=== PATIENT | male | born 1955 | race Caucasian/White ===

== ENCOUNTER 2018-04-28 22:08 | Emergency (ER) | payer MEDICARE ==
[2018-04-28 22:32] VITALS: TEMP 97.4; O2SAT 98
--- NOTE | 2018-04-28 23:02 | RAD ---
3 VIEWS RIGHT ANKLE RADIOGRAPHIC SERIES. INDICATIONS: Pain post fall. COMPARISONS: Degenerative disease. FINDINGS: Suspect acute fracture from the superior aspect of the navicular bone adjacent to the talonavicular joint with adjacent soft tissue swelling. Suspect underlying ligamentous injury. Large calcaneal Achilles tendon and plantar tendon insertion spurs. Sequela of remote small medial malleolar avulsion fracture. No radiopaque soft tissue foreign bodies or soft tissue gas. IMPRESSION: Suspect acute fracture from the superior dorsal aspect of the navicular bone adjacent to the talonavicular joint. Degenerative disease. No radiopaque soft tissue foreign bodies. Electronically signed by: Prateek Oneal MD 04/28/2018 11:00 PM CDT
--- NOTE | 2018-04-28 23:03 | RAD ---
EXAM: 3 VIEWS RIGHT KNEE RADIOGRAPHS CLINICAL INDICATION: Pain post fall. COMPARISON: None. FINDINGS: Degenerative disease. No fractures, dislocations or joint effusion. No radiopaque soft tissue foreign bodies or soft tissue gas. IMPRESSION: Degenerative disease. No fractures or joint effusions. Electronically signed by: Prateek Oenal MD 04/28/2018 11:01 PM CDT
[2018-04-28] MEDS: ONDANSETRON ODT 8 MG TAB SL ONE (23:16)
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
[2018-04-29 00:13] VITALS: BP 144/74
== END 2018-04-29 00:15 | disposition home or self-care (01) ==
LOC: ER 22:08
DX: S83.91XA Sprain of unspecified site of right knee, initial encounter (principal); S92.251A Displaced fracture of navicular [scaphoid] of right foot, initial encounter for closed fracture; J44.9 Chronic obstructive pulmonary disease, unspecified; I11.0 Hypertensive heart disease with heart failure; I50.9 Heart failure, unspecified; E07.9 Disorder of thyroid, unspecified; Z86.73 Personal history of transient ischemic attack (TIA), and cerebral infarction without residual deficits; W17.89XA Other fall from one level to another, initial encounter; Y92.814 Boat as the place of occurrence of the external cause

== ENCOUNTER → 2018-05-09 | Outpatient (CLI) | payer MEDICARE ==
--- NOTE | 2018-05-09 09:06 | RAD ---
EXAM DESCRIPTION: Ankle,Right 3 Views CLINICAL HISTORY: 63 years, Male, ANKLE PAIN COMPARISON: None. TECHNIQUE: AP/lateral/oblique of the right ankle FINDINGS: Intact medial and lateral malleolus. Small accessory ossicle at the tip of the medial malleolus. There is mild soft tissue swelling laterally. Intact proximal metatarsals. Intact dome of the talus. Lateral view shows no evidence of fracture of the body of the talus or calcaneus. Large dorsal and plantar calcaneal enthesophytes of the calcaneus are present. Partial calcification of the plantar aponeurosis. Avulsion fracture of the dorsal navicular is seen. This appears unchanged in alignment compared to previous study. No ankle joint narrowing, spurring or effusion. IMPRESSION: Dorsally avulsion fracture of the navicular. Large calcaneal spurs. Electronically signed by: Osmani Jones MD 05/09/2018 9:05 AM CDT
--- NOTE | 2018-05-09 13:40 | RAD ---
EXAM DESCRIPTION: Foot,Right 3 Views CLINICAL HISTORY: 63 years, Male, FOOT PAIN COMPARISON: None TECHNIQUE: AP, lateral, and oblique views of the right foot FINDINGS: Right foot is osteopenic with mild hallux valgus of the great toe and modest degenerative changes at the first MTP joint. Marked calcaneal spurring at the Achilles tendon insertion and milder plantar calcaneal spurring noted. On the lateral view only along the dorsal surface of the navicular a fracture or evulsion injury or erosion with disruption of the superior cortex is suspected. This represents interval change from remote 2011 examination. Soft tissue thickening in this region is evident. IMPRESSION: Abnormal right foot with disruption of the cortex and erosion and/or a avulsion injury at the dorsal surface of the tarsal navicular, seen on the lateral view only. Osteopenia with modest degenerative changes. Electronically signed by: Sathya Jenkins MD 05/09/2018 1:39 PM CDT
== END ==
LOC: RAD 08:22
PROVIDERS: ATTEND Orthopaedic Surgery
DX: S92.251A Displaced fracture of navicular [scaphoid] of right foot, initial encounter for closed fracture (principal); M77.31 Calcaneal spur, right foot; M25.571 Pain in right ankle and joints of right foot

== ENCOUNTER → 2018-05-31 | Outpatient (CLI) | payer MEDICARE ==
--- NOTE | 2018-05-31 08:42 | RAD ---
EXAM DESCRIPTION: Foot,Right 3 Views CLINICAL HISTORY: 63 years, Male, SPRAIN OF RIGHT FOOT COMPARISON: None TECHNIQUE: AP, lateral, and oblique views of the right foot FINDINGS: Avulsion injury of the dorsal navicular is noted. This was seen on the previous study and the degree of displacement of the fragment appears decreased and there may be minimal early callus formation. Lateral view shows large dorsal and plantar calcaneal enthesophytes. IMPRESSION: Dorsal navicular avulsion with partial healing. Large calcaneal osteophytes. Electronically signed by: Osmani Jones MD 05/31/2018 8:41 AM CDT
== END ==
LOC: RAD 08:09
PROVIDERS: ATTEND Orthopaedic Surgery
DX: S93.601A Unspecified sprain of right foot, initial encounter (principal)